=== PATIENT | female | born 2005 | race Caucasian/White ===

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

== ENCOUNTER 2024-06-18 22:32 | Emergency (ER) | payer BC ==
[2024-06-18] MEDS: Acetaminophen/oxyCODONE 325-5 MG Tab PO ONE (23:44)
[2024-06-18] MEDS: Amoxicillin/Clavulanate K 875-125 MG Tab PO ONE (23:45)
[2024-06-19 00:20] VITALS: BP 110/83; PULSE 86
== END 2024-06-18 23:56 | disposition home or self-care (01) ==
LOC: JD.ED 22:32
DX: K04.7 Periapical abscess without sinus (principal); E66.9 Obesity, unspecified; Z79.899 Other long term (current) drug therapy; Z68.34 Body mass index [BMI] 34.0-34.9, adult
CPT/HCPCS: 99282; A9270